=== PATIENT | male | born 1980 | race Caucasian/White ===

== ENCOUNTER 2024-03-21 05:31 | Inpatient (IN) | payer MEDICAID ==
[~2024-03-21] VITALS: Ht 167.6 cm; Wt 85.4 kg
[~2024-03-21 05:31] MED LIST: CEPH-37; [UNRECOGNIZED DRUG - OTHER]
--- NOTE | 2024-03-21 07:25 | ED.PDOC ---
History of Present Illness HPI Comments 44 y/o M, with a Hx of polysubstance abuse and "blood clot in left-side of head" w/"surgical intervention" is BIBA for c/o abdominal pain, nausea, vomiting, and shortness of breath, today. Patient endorses on unprovoked and sudden onset of symptoms at 0000, this morning. Patient comments on eating "teri[employer]raft[employer] chicken," last night, prior to onset of symptoms and endorses on no recent substance use/exposure. Patient states on having no further additional pertinent or relevant Hx in addition to any recent sick contact, travel, or injuries. Patient denies having any hematemesis, diarrhea, constipation, urinary symptoms, chest pain, or other associated symptoms or modifiers at this time. Chief Complaint: Abdominal Pain Time Seen by MD: 06:35 Primary Care Provider: NONE Reviewed Notes: Nurses Notes, Shirt Ironer Supervisor Notes, Medications, Allergies Allergies: Coded Allergies: NO KNOWN ALLERGIES (Unverified , 11/24/12) Home Meds Reported Medications [Tylenol W Codiene] No Conflict Check 11/27/12 Cephalexin (Keflex) 500 Mg Cap 11/27/12 Information Source: Patient, Emergency Med Personnel Mode of Arrival: EMS Severity: Moderate Timing: Hours Duration: Since onset Prehospital treatment: 12 Lead EKG, President Ceo & Founder, Other (IV access 22G to right hand ) Past Medical History Past Medical History (Other): "blood clot in left-side of head" w/"surgical intervention" Surgical History (Other): "blood clot in left-side of head" w/"surgical intervention" Family History Family History: Unknown Social History Smoker: Cigarettes Alcohol: Denies ETOH Use Drugs: Marijuana, Methamphetamine Lives In: Home Constitutional: denies: chills, diaphoresis, fatigue, fever, malaise, sweats, weakness, others EENTM: denies: blurred vision, double vision, ear bleeding, ear discharge, ear drainage, ear pain, ear ringing, eye pain, eye redness, hearing loss, mouth pain, mouth swelling, nasal discharge, nose bleeding, nose congestion, nose pain, photophobia, tearing, throat pain, throat swelling, voice changes, others Respiratory: reports: shortness of breath; denies: cough, hemoptysis, orthopnea, SOB at rest, SOB with excertion, stridor, wheezing, others Cardiovascular: denies: chest pain, dizzy spells, diaphoresis, Dyspnea on exertion, edema, irregular heart beat, left arm pain, lightheadedness, palpitations, PND, syncope, others Gastrointestinal: reports: abdominal pain, nausea, vomiting; denies: abdomen distended, blood streaked bowels, constipated, diarrhea, dysphagia, difficulty swallowing, hematemesis, melena, poor appetite, poor fluid intake, rectal bleeding, rectal pain, others Genitourinary: denies: burning, dysuria, flank pain, frequency, hematuria, incontinence, penile discharge, penile sore, pain, testicle pain, testicle swelling, urgency, others Neurological: denies: dizziness, fainting, headache, left sided numbness, left sided weakness, numbness, paresthesia, pre-existing deficit, right sided numb ness, right sided weakness, seizure, speech problems, tingling, tremors, weakness, others Musculoskeletal: denies: back pain, gout, joint pain, joint swelling, muscle pain, muscle stiffness, neck pain, others Integumetry: denies: bruises, change in color, change in hair/nails, dryness, laceration, lesions, lumps, rash, wounds, others Allergic/Immunocompromised: denies: Difficulty Healing, Frequent Infections, Hives, Itching, others Hematologic/Lymphatic: denies: anemia, blood clots, easy bleeding, easy bruising, swollen glands, others Endocrine: denies: excessive hunger, excessive sweating, excessive thirst, excessive urination, flushing, intolerance to cold, intolerance to heat, unexplained weight gain, unexplained weight loss, others Psychiatric: denies: anxiety, bipolar disorder, depression, hopeless, panic disorder, schizophrenia, sleepless, suicidal, others All Other Systems: Reviewed and Negative Physical Exam General Appearance: Moderate Distress HEENT: Normal ENT Inspection, Pharynx Normal, TMs Normal Neck: Full Range of Motion, Non-Tender, Normal, Normal Inspection Respiratory: Chest Non-Tender, Lungs Clear, No Accessory Muscle Use, No Respiratory Distress, Normal Breath Sounds Cardiovascular: No Edema, No JVD, No Murmur, No Gallop, Normal Peripheral Pulses, Regular Rate/Rhythm Breast Exam: Deferred Gastrointestinal: No Organomegaly, No Pulsatile Mass, Normal Bowel Sounds, Soft Genitalia: Deferred Pelvic: Deferred Rectal: Deferred Extremities: No calf tenderness, Normal capillary refill, Normal inspection, Normal range of motion, Non-tender, No pedal edema Musculoskeletal : Apperance: Normal Neurologic: Alert, lubricating specialist II-XII nml as Tested, No Motor Deficits, Normal Affect, Normal Mood, No Sensory Deficits Cerebellar Function: NOT DONE Reflexes: NOT DONE Skin: Dry, Normal Color, Warm Peripheral Pulses: 3+ Radial (R), 3+ Radial (L) Lymphatic: No Adenopathy Was a procedure done? Was a procedure done?: No Differential Dx Considerations may include: cannabinoid hyperemesis syndrome, gastritis, gastroenteritis, appendicitis, diverticulitis, cholecystitis, cholelithiasis, nephrolithiasis, PUD, spoiled food, UTI, acute abdomen X-Ray, Labs, Meds, VS Vital Signs Date Time Temp Pulse Resp B/P (MAP) Pulse Ox O2 Delivery O2 Flow Rate FiO2 03/21/24 10:15 97.7 65 16 133/87 (102) 97 97.7 03/21/24 09:06 77 14 156/97 03/21/24 08:05 78 16 97 Room Air* 0 21 03/21/24 08:05 78 16 169/94 03/21/24 07:59 97.7 78 16 169/94 (119) 97 97.7 03/21/24 05:37 98.9 104 16 172/109 (130) 97 Lab Test 03/21/24 09:15 03/21/24 07:15 Range/Units Urine Opiates Screen Neg NEGATIVE Urine Fentanyl Screen Neg NEGATIVE Urine Barbiturates Screen Neg NEGATIVE Urine Phencyclidine Screen Neg NEGATIVE Urine Amphetamines Screen Pos NEGATIVE Urine Benzodiazepines Screen Neg NEGATIVE Urine Cocaine Screen Neg NEGATIVE Urine Cannabinoids Screen Neg NEGATIVE White Blood Count 10.2 4.4-10.8 10^3/uL Red Blood Count 4.79 4.5-5.90 10^6/uL Hemoglobin 14.5 13.5-17.5 g/dL Hematocrit 42.7 41.0-53.0 % Mean Corpuscular Volume 89.2 80.0-100.0 fL Mean Corpuscular Hemoglobin 30.2 28.0-32.0 pg Mean Corpuscular Hemoglobin Concent 33.9 32.0-36.0 g/dL Red Cell Distribution Width 13.8 11.8-14.3 % Platelet Count 229 140-450 10^3/uL Mean Platelet Volume 9.0 6.9-10.8 fL Neutrophils (%) (Auto) 70.5 37.0-80.0 % Lymphocytes (%) (Auto) 19.4 10.0-50.0 % Monocytes (%) (Auto) 7.9 0.0-12.0 % Eosinophils (%) (Auto) 1.6 0.0-7.0 % Basophils (%) (Auto) 0.6 0.0-2.0 % Neutrophils # (Auto) 7.2 1.6-8.6 10 ^3/uL Lymphocytes # (Auto) 2.0 0.4-5.4 10 ^3/uL Monocytes # (Auto) 0.8 0-1.3 10 ^3/uL Eosinophils # (Auto) 0.2 0-0.8 10 ^3/uL Basophils # (Auto) 0.1 0-0.2 10 ^3/uL Nucleated Red Blood Cells 0.1 % Sodium Level 141 136-145 mmol/L Potassium Level 3.5 3.5-5.1 mmol/L Chloride Level 108 H 98-107 mmol/L Carbon Dioxide Level 29 20-31 mmol/L Anion Gap 4 L 5-15 Blood Urea Nitrogen 10 9-23 mg/dL Creatinine 0.87 0.700-1.30 mg/dL Glomerular Filtration Rate Calc 109 >90 mL/min BUN/Creatinine Ratio 11.5 10.0-20.0 Serum Glucose 109 H 74-106 mg/dL Calcium Level 9.6 8.7-10.4 mg/dL Current Medications Medications (Trade) Dose Ordered Sig/Igor Route Start Time Stop Time Status Last Admin Sodium Chloride 1,000 ml @ 1,000 mls/hr Q1H ONCE IV 03/21/24 07:45 03/21/24 08:44 DC 03/21/24 08:01 Morphine Sulfate 4 mg ONCE ONCE IV 03/21/24 07:45 03/21/24 07:46 DC 03/21/24 08:05 Ondansetron HCl (Zofran) 4 mg ONCE ONCE IV 03/21/24 07:45 03/21/24 07:46 DC 03/21/24 08:04 Patient alert. Complaining of abdominal pain. Vitals stable. Answering all questions. Uses drugs. Blood pressure elevated. Establish intravenous access. Was given fluids. Was given pain medication. Reviewed his history. Explained to the patient. Continue cardiac monitoring. Time of 1ST Reevaluation: 07:05 Reevaluation 1ST: Unchanged Patient Education/Counseling: Diagnosis, Treatment Family Education/Counseling: No Family Present Departure 1 Departure Time of Disposition: 07:34 Impression: Primary Impression: Acute abdominal pain Disposition: ADMITTED INPATIENT Admit to: Med Surg Condition: Guarded Critical Care Note Critical Care Time?: No Stability Stability form required: No Heart Score Heart Score: Heart Score Response (Comments) Value History N/A 0 EKG N/A 0 Age N/A 0 Risk Factors N/A 0 Troponin N/A 0 Total 0 I personally scribed for NANCY ANDREW MD ([email or web address]) on 03/21/24 at 07:25. Electronically submitted by Chris Pickett ([email or web address]). NANCY ANDREW MD Mar 21, 2024 07:25
[2024-03-21 07:36] LABS: Basophils # (auto) 0.1 10 ^3/uL (0-0.2); Basophils % (auto) 0.6 % (0.0-2.0); Eosinophils # (auto) 0.2 10 ^3/uL (0-0.8); Eosinophils % (auto) 1.6 % (0.0-7.0); Hematocrit 42.7 % (41.0-53.0); Hemoglobin 14.5 g/dL (13.5-17.5); Lymphocytes % (auto) 19.4 % (10.0-50.0); Mean Corpuscular Hemoglobin 30.2 pg (28.0-32.0); Mean Corpuscular Hgb Conc. 33.9 g/dL (32.0-36.0); Mean Corpuscular Volume 89.2 fL (80.0-100.0); Monocytes # (auto) 0.8 10 ^3/uL (0-1.3); Monocytes % (auto) 7.9 % (0.0-12.0); Neutrophils # (auto) 7.2 10 ^3/uL (1.6-8.6); Neutrophils % (auto) 70.5 % (37.0-80.0); Nucleated Red Blood Cells % 0.1 %; Platelet Count (auto) 229 10^3/uL (140-450); Red Blood Cells 4.79 10^6/uL (4.5-5.90); Red Cell Distribution Width 13.8 % (11.8-14.3); White Blood Cell 10.2 10^3/uL (4.4-10.8)
[2024-03-21] MEDS: SODIUM CHLORIDE 0.9% 1,000 ML IV ONE (08:01)
[2024-03-21 08:02] LABS: Chloride 108 mmol/L (98-107); Potassium 3.5 mmol/L (3.5-5.1); Sodium 141 mmol/L (136-145)
[2024-03-21 08:03] LABS: Anion Gap 4 (5-15); Carbon Dioxide 29 mmol/L (20-31)
[2024-03-21 08:04] LABS: Calcium 9.6 mg/dL (8.7-10.4)
[2024-03-21] MEDS: ONDANSETRON HCL 4 MG/2 ML VIAL IV ONE (08:04)
[2024-03-21 08:05] VITALS: PULSE 78; RESP 16; O2SAT 97
[2024-03-21] MEDS: MORPHINE SULFATE 4 MG/ML SYR/VIAL IV ONE (08:05)
[2024-03-21 08:09] LABS: BUN/Creatinine Ratio 11.5 (10.0-20.0); Blood Urea Nitrogen 10 mg/dL (9-23); Glucose 109 mg/dL (74-106)
[2024-03-21 10:10] LABS: Amphetamine Screen, Urine Pos (NEGATIVE)
[2024-03-21 10:12] LABS: Barbiturate Scree,Urine Neg (NEGATIVE); Benzodiazephine Screen, Urine Neg (NEGATIVE)
[2024-03-21 10:13] LABS: Cannabinoid Screen, Urine Neg (NEGATIVE); Cocaine Screen, Urine Neg (NEGATIVE); Opiate Scree,Urine Neg (NEGATIVE); Phencyclidine Screen, Urine Neg (NEGATIVE)
[2024-03-21] MEDS ORDERED: ONDANSETRON HCL 4 MG/2 ML VIAL IV PRN (11:15)
[2024-03-21] MEDS ORDERED: KETOROLAC TROMETH 30 MG/ML 1ML VIAL IV PRN (11:15)
[2024-03-21] MEDS ORDERED: hydrALAZINE HCL 20 MG/ML VL IV PRN (12:45)
[2024-03-21] MEDS: PANTOPRAZOLE 40 MG/10 ML VIAL INJ IV SCH (12:50)
--- NOTE | 2024-03-21 12:50 | DVHHP2 ---
History of Present Illness Reason for Visit: Abdominal pain History of Present Illness 44-year-old male is brought in by ambulance with complaints of right upper quad abdominal pain, nausea, vomiting and shortness of breath. Patient states he ate teriyaki chicken last night 45 minutes prior to onset of symptoms, and states that at the time he had nausea, and had x1 episode vomiting, patient states that abdominal pain is subsiding at time of assessment, patient states pain is right above belly button. Patient was hypertensive in the ER, patient states he does not take any blood pressure medications. Patient also states he is a meth user. Patient denies chest pain, headache, dizziness, diaphoresis, shortness of breath, no nausea current, vomiting, fever, or chills endorsed by the patient. Patient was admitted for further evaluation medical management. Past Medical History "blood clot in left-side of head" w/"surgical intervention" Smoke: <1 pack per day ALCOHOL: none Drugs: Marijuana, Other (Methamphetamine) Lives: Alone Review of Systems Constitutional: No: Fever, Chills, Sweats, Weakness, Malaise, Other Eyes: No: Pain, Vision change, Conjunctivae inflammation, Eyelid inflammation, Other, Redness ENT: No: Ear pain, Ear discharge, Nose pain, Nose discharge, Nose congestion, Mouth pain, Mouth swelling, Throat pain, Throat swelling, Other Respiratory: No: Cough, Dry, Shortness of breath, SOB with excertion, Wheezing, Hemoptysis, Pleuritic Pain, Sputum, Wheezing, Other Cardiovascular: No: Chest Pain, Palpitations, Orthopnea, Paroxysmal Noc. Dyspnea, Edema, Lt Headedness, Other Gastrointestinal: Abdominal Pain; No: Nausea, Vomiting, Diarrhea, Constipation, Melena, Hematochezia, Other Genitourinary: No Dysuria, No Frequency, No Incontinence, No Hematuria, No Retention, No Other Musculoskeletal: No: other, neck pain, shoulder pain, arm pain, back pain, hand pain, leg pain, foot pain Skin: No: Rash, Lesions, Jaundice, Bruising, Other Neurological: No: Weakness, Numbness, Incoordination, Change in speech, Confusion, Seizures, Other Allergies: Coded Allergies: NO KNOWN ALLERGIES (Unverified , 11/24/12) Medications Current Medications Medications Dose Ordered Sig/Igor Route Start Time Stop Time Status Last Admin Dose Admin Ondansetron HCl 4 mg Q4HP PRN IV 03/21/24 11:15 Ketorolac Tromethamine 15 mg Q6HPRN PRN IV 03/21/24 11:15 03/26/24 11:14 Pantoprazole Sodium 40 mg DAILY IV 03/21/24 11:15 Exam Vital Signs Vital Signs Date Time Temp Pulse Resp B/P (MAP) Pulse Ox O2 Delivery O2 Flow Rate FiO2 03/21/24 11:45 97.7 79 16 156/100 (118) 97 97.7 03/21/24 08:05 Room Air* 0 21 General Appearance: Alert, Oriented X3, Cooperative, No acute distress HEENT: Atraumatic, PERRLA, EOMI, Mucous membr. moist/pink Respiratory: Clear to auscultation, Normal air movement Cardiovascular: Regular rate, Normal S1, Normal S2, No murmurs Abdominal: Normal bowel sounds, Soft, No tenderness, No hepatospenomegaly, No masses Extremities: No clubbing, No cyanosis, No edema, Normal pulses, No tenderness/swelling Skin: No rashes, No breakdown, No significant lesion Neuro: Normal gait, Normal speech, Strength at 5/5 X4 ext, Normal tone, Sensation intact, Cranial nerves 3-12 NL, Reflexes 2+ Psych/Mental Status: Mental status NL, Mood NL Labs/Xrays Labs, ED notes and imaging reviewed Labs Test 03/21/24 09:15 03/21/24 07:15 Range/Units Urine Opiates Screen Neg NEGATIVE Urine Fentanyl Screen Neg NEGATIVE Urine Barbiturates Screen Neg NEGATIVE Urine Phencyclidine Screen Neg NEGATIVE Urine Amphetamines Screen Pos NEGATIVE Urine Benzodiazepines Screen Neg NEGATIVE Urine Cocaine Screen Neg NEGATIVE Urine Cannabinoids Screen Neg NEGATIVE White Blood Count 10.2 4.4-10.8 10^3/uL Red Blood Count 4.79 4.5-5.90 10^6/uL Hemoglobin 14.5 13.5-17.5 g/dL Hematocrit 42.7 41.0-53.0 % Mean Corpuscular Volume 89.2 80.0-100.0 fL Mean Corpuscular Hemoglobin 30.2 28.0-32.0 pg Mean Corpuscular Hemoglobin Concent 33.9 32.0-36.0 g/dL Red Cell Distribution Width 13.8 11.8-14.3 % Platelet Count 229 140-450 10^3/uL Mean Platelet Volume 9.0 6.9-10.8 fL Neutrophils (%) (Auto) 70.5 37.0-80.0 % Lymphocytes (%) (Auto) 19.4 10.0-50.0 % Monocytes (%) (Auto) 7.9 0.0-12.0 % Eosinophils (%) (Auto) 1.6 0.0-7.0 % Basophils (%) (Auto) 0.6 0.0-2.0 % Neutrophils # (Auto) 7.2 1.6-8.6 10 ^3/uL Lymphocytes # (Auto) 2.0 0.4-5.4 10 ^3/uL Monocytes # (Auto) 0.8 0-1.3 10 ^3/uL Eosinophils # (Auto) 0.2 0-0.8 10 ^3/uL Basophils # (Auto) 0.1 0-0.2 10 ^3/uL Nucleated Red Blood Cells 0.1 % Sodium Level 141 136-145 mmol/L Potassium Level 3.5 3.5-5.1 mmol/L Chloride Level 108 H 98-107 mmol/L Carbon Dioxide Level 29 20-31 mmol/L Anion Gap 4 L 5-15 Blood Urea Nitrogen 10 9-23 mg/dL Creatinine 0.87 0.700-1.30 mg/dL Glomerular Filtration Rate Calc 109 >90 mL/min BUN/Creatinine Ratio 11.5 10.0-20.0 Serum Glucose 109 H 74-106 mg/dL Calcium Level 9.6 8.7-10.4 mg/dL Assessment/Plan Assessment/Plan Acute abdominal pain, secondary to PUD or food poisoning? Admit to medical/surgical Abdominal pain is resolving Pain medication p.r.n. Zofran p.r.n. nausea Protonix Hypertensive urgency, possibly secondary to pain or withdraw Does not take home medications, states no history Hydralazine p.r.n. systolic blood pressure greater than 150 mmHg Substance abuse, methamphetamines Discussed abstinence Social service consult for resources FEN/PPX GI prophylaxis-Protonix VTE prophylaxis not indicated Clear liquid diet, can advance as tolerated Plan discussed with: Patient My Orders Orders - YANNI PRYOR Procedure Category Date Status Time Admit ADMIT 03/21/24 Transmitted 11:01 Code Status CODE 03/21/24 Transmitted 11:01 Vital Signs NOVA 03/21/24 In Process 11:01 Review Orders With [facility] 03/21/24 In Process Adm. 11:01 Up Ad [place] NOVA 03/21/24 In Process 11:01 Notify Of Changes [facility] 03/21/24 In Process From Base 11:01 Advance Directive [facility] 03/21/24 In Process 11:01 Basic Metabolic Panel LAB 03/22/24 Verified 04:00 Complete Blood Count LAB 03/22/24 Verified 04:00 Patient Condition ORDERS 03/21/24 Transmitted 11:01 Allergies NOVA 03/21/24 In Process 11:01 Ondansetron Hcl PHA 03/21/24 In Process (Zofran) 11:15 Clear Liq Diet DIET 03/21/24 Transmitted Lunch Ketorolac Injection PHA 03/21/24 In Process (Toradol Injection) 11:15 Pantoprazole PHA 03/21/24 In Process (Protonix) 11:15 Date of Service: Mar 21, 2024 Billing Provider: YANNI PRYOR Common Visit Codes: [id number] INP/OBS CARE (HIGH) YANNI PRYOR Mar 21, 2024 12:50
[2024-03-21 16:52] VITALS: BP 121/81; PULSE 73; RESP 16; TEMP 98.7; O2SAT 95
[2024-03-23 09:26] LABS: Hepatitis B Surface Antigen Negative (Negative)
[2024-03-23 09:47] LABS: Hepatitis C Antibody Negative (Negative)
== END 2024-03-21 18:24 | disposition left against medical advice (07) | DRG 241 ==
LOC: EDBD 05:31 → ER 05:31 → OVERFLOW 11:01
PROVIDERS: ADMIT Registered Nurse General Practice; ATTEND Registered Nurse General Practice
DX: K27.9 Peptic ulcer, site unspecified, unspecified as acute or chronic, without hemorrhage or perforation (principal); A05.9 Bacterial foodborne intoxication, unspecified; F15.10 Other stimulant abuse, uncomplicated; Z53.29 Procedure and treatment not carried out because of patient's decision for other reasons; F17.210 Nicotine dependence, cigarettes, uncomplicated; I16.0 Hypertensive urgency; Z79.899 Other long term (current) drug therapy
CPT/HCPCS: 36415; 80048; 80307; 85025; 86803; 87340; 96361; 96374; G0378; J2405; J2470